=== PATIENT | female | born 1975 | race Caucasian/White ===

== ENCOUNTER → 2020-09-12 14:17 | Outpatient (CLI) | payer OTHER, SELFPAY ==
--- NOTE | ~2020-09-12 | MM_ITS ---
EXAMINATION: MM screening [facility] w kristan HISTORY: Screening mammogram TECHNIQUE: Craniocaudal and mediolateral oblique 3-D tomosynthesis images were obtained and synthetic 2-D images were generated. CAD analysis was submitted and interpreted. COMPARISON: 03/08/2018 BREAST PARENCHYMAL COMPOSITION: The breasts are heterogeneously dense, which may obscure small masses . FINDINGS: There is no evidence of suspicious mass, calcification, or architectural distortion to sugg est malignancy in either breast. There has been no suspicious interval change. IMPRESSION: 1. No mammographic evidence of malignancy. 2. Recommend routine screening mammography in one year. BI-RADS Category 1: Negative Reviewed, dictated and finalized at location A.
== END ==
PROVIDERS: Visit Provider Nurse Practitioner Obstetrics & Gynecology
DX: Z12.31 Encounter for screening mammogram for malignant neoplasm of breast (principal)
CPT/HCPCS: 77063; 77067

== ENCOUNTER → 2022-01-18 15:53 | Outpatient (CLI) | payer OTHER, SELFPAY ==
--- NOTE | ~2022-01-18 | MM_ITS ---
EXAMINATION: MM screening [facility] BI w kristan HISTORY: Screening mammogram TECHNIQUE: Craniocaudal and mediolateral oblique 3-D tomosynthesis images were obtained and synthetic 2-D images were generated. CAD analysis was submitted and interpreted. COMPARISON: 09/12/2020, 03/08/2018 BREAST PARENCHYMAL COMPOSITION: The breasts are heterogeneously dense, which may obscure small masses . FINDINGS: No suspicious mass, calcification, or architectural distortion are identified in either rimma ast to suggest malignancy. There has been no suspicious interval change. IMPRESSION: 1. No mammographic evidence of malignancy. 2. Recommend routine screening mammography in one year. BI-RADS Category 1: Negative Reviewed, dictated and finalized at location A.
== END ==
PROVIDERS: PCP Family Medicine; Visit Provider Nurse Practitioner Obstetrics & Gynecology
DX: Z12.31 Encounter for screening mammogram for malignant neoplasm of breast (principal)
CPT/HCPCS: 77063; 77067

== ENCOUNTER 2022-03-17 15:30 | Outpatient (CLI) | payer OTHER, SELFPAY ==
[2022-03-17 15:52] LABS: Hematocrit 42.9 % (37.0-47.0); Hemoglobin 14.7 g/dL (12.0-15.0)
== END 2022-03-17 15:31 | disposition home or self-care (01) ==
PROVIDERS: Anesthesiology; PCP Family Medicine; Visit Provider Obstetrics & Gynecology
DX: D64.9 Anemia, unspecified (principal); Z87.42 Personal history of other diseases of the female genital tract; Z01.818 Encounter for other preprocedural examination
CPT/HCPCS: 36415; 85014; 85018; 86850; 86900; 86901

== ENCOUNTER 2022-03-24 00:44 | Day surgery (SDC) | payer OTHER, SELFPAY ==
[2022-03-09 12:58] VITALS: BMI 23.8
--- NOTE | 2022-03-09 14:02 | PC.NURSE ---
Report to the Outpatient Waiting Room, entrance under the green pavilion located off [facility], at time _0630__ on date 03/24/22_ . Planned Procedure Time: _0830 . Time changes happen often and if your time is changed the preop area will call you the afternoon before. - You and your visitor will be asked to self-screen and do not enter if you have any COVID symptoms. - Only one visitor is requested with a max of two and NO children visitors are allowed at this time. - The patient visitor may be requested to leave or wait in car when not with patient due to distancing restrictions. - A mask is REQUIRED within the hospital. Patients may have clear liquids (water, carbonated beverages, clear teas, apple juice) until 3 hours prior to surgery with a maximum of 20 ounces. - No food from midnight until time of surgery - Take the following medications with a SIP of water the morning of surgery: _N/A Medications to discontinue per physician ____VITAMIN D & IRON Date to take last dose__03/21/22 Please no make-up, nail georgian, hairspray, perfume, deodorant, or body powder the day of surgery. No jewelry (including any body piercings) or valuables the day of surgery, leave them at home. Please take a shower or bath the night before, or the morning of, surgery with an antibacterial soap. Wear comfortable, loose fitting clothing. Children are encouraged to wear pajamas. - Jewelry must be removed prior to entering the operating room. Rings and piercings that are not removed may be cut off. - The hospital will not accept responsibility for valuables. - Please leave all valuables, including medications, at home the day of surgery. If you are going home after surgery, a licensed local company intermodal truck driver must drive you home. - NO public transportation without another adult if you receive anesthesia. - We recommend that an adult stay with you for 24 hours following discharge. - We also recommend that you do not drive, make important decision, drink alcoholic beverages, or take any drugs that were not prescribed by your health care provider for at least 24 hours after your discharge time. Follow any additional instructions given to you from your surgeon. If you or anyone in your household have experienced Covid symptoms in the past week, please notify your surgeon or the nurse liaison at the phone number below for possible testing. Telephone instructions given to _ALICIA and asked if any additional questions and then verbalized understanding. Patient advised to call surgeon office or pre surgery nurse liaison [phone] if any additional questions.
--- NOTE | 2022-03-23 13:19 | P.PNAN_ITS ---
Anes - Initial Pre Proc Eval Procedure: Operation Date: 03/24/22 08:30 Proposed Procedures p Total Laparoscopic Hysterectomy, Bilateral Salpingectomy - Gordon Maldonado MD Date/Time: 03/23/22 13:19 Surgeon: Gordon Maldonado MD Pre Op Diagnosis: menorrhagia Patient Data Age: 47 Gender: F Height: 1.65 m Weight: 65 kg Allergies Allergy/AdvReac Type Severity Reaction Status Date / Time No Known Allergies Allergy Unverified 03/24/22 06:40 Home Medications Medication Instructions Recorded Confirmed Type ergocalciferol (vitamin D2) 50 mcg 50 mcg PO DAILY 03/09/22 03/24/22 History (2,000 unit) capsule ferrous sulfate 143 mg PO DAILY 03/09/22 03/24/22 History Patient hx anesthesia problems: post op nausea/vomiting Family hx anesthesia problems: none Results Review: All pre-operative results and documents have been reviewed as part of the pre- operative evaluation. [facility] Social History Social History Smoking status: Never smoker Alcohol intake: current Substance use: never Living arrangements: with family Spiritual care concerns: No Anes - Eval Final PreProcedure Day of Procedure 03/23/22 13:19 Patient weight: normal Heart: regular rate and rhythm Lungs: clear to auscultation Airway: Mallampati scale class II Neurological: alert and oriented Last oral intake: >/= 8 hours ASA classification: II Emergent: no Anesthetic plan: proceed Anesthesia type and monitoring: general ETT and standard monitoring Results Review: All pre-operative results and documents have been reviewed as part of the pre- operative evaluation. Informed Consent: The patient's anesthetic plan and its attendant risks and benefits were discussed with the patient/family/POA. Questions were solicited and answers provided to the satisfaction of the patient/family/POA.
[2022-03-24] VITALS (9 sets, daily range): BP systolic 121–154; BP diastolic 68–89; PULSE 61–88; RESP 13–19; TEMP 36.2–37.5; O2SAT 96–100
[2022-03-24] MEDS: ACETAMINOPHEN 500 MG TABLET 1000 MG PO (06:43)
[2022-03-24] MEDS: LACTATED RINGERS 1,000 ML 30 ML IV CONT ×2 (07:08→10:47)
[2022-03-24] MEDS: SCOPOLAMINE 1.5 MG PATCH TRANSDERM (07:09)
[2022-03-24] MEDS: KETOROLAC 15 MG/ML VIAL (*BKC) IV PUSH (07:11)
--- NOTE | 2022-03-24 08:01 | WPDHPUPDATE1 ---
History and Physical Update Update Date/Time: 03/24/22 08:01 History and Physical has been reviewed, including an updated exam of the patient. There are NO changes in the patient's condition. Risks, benefits, and alternatives have been discussed and questions answered. Patient agrees to proceed with procedure.
[2022-03-24] MEDS: ceFAZolin 2 GM/D5W 50 ML 2 GM/50 ML BAG IVPB (08:23)
[2022-03-24] MEDS: ceFAZolin SODIUM 1 GM VIAL (09:16)
--- NOTE | 2022-03-24 11:12 | W.PM.PROC2 ---
Procedure Note - Detailed Date of Procedure 03/24/22 Pre-op Diagnosis menorrhagia Post-op Diagnosis Same Procedure Performed Laparoscopic bilateral salpingectomy Surgeon Gordon Maldonado MD Anesthesia General Indications Unwanted fertility Findings Normal pelvic anatomy Description of Procedure The patient was taken the operating room. She was prepped and draped in the dorsal lithotomy position after induction of general anesthesia. A 5 mm skin incision was made in the left upper quadrant of the abdominal skin. A 5 mm trocar was inserted the intra-abdominal cavity under direct visualization of the scope. Pneumoperitoneum was achieved. A 5 mm trocar was inserted in the left lower quadrant identical fashion. A 5 mm infraumbilical trocar was inserted in identical fashion as well. The bilateral fallopian tubes were removed. This was done by using a LigaSure cautery. The mesosalpinx adjacent to the tube was cauterized transected with LigaSure. This was initiated in the area the ovary and in a stepwise fashion moved medially to the area of the cornu of the uterus. Once there the fallopian tube was cauterized and transected. This was done in identical fashion on each side. The fallopian tubes were taken out through the left lower quadrant trocar site. The pneumoperitoneum was reduced. The trocars removed. The skin was closed with subcuticular 4 Monocryl and covered with Dermabond. She was taken to cover stable condition. Sponge lap and needle counts were correct x2. Estimated Blood Loss -100.0 Urine Output -100.0 Drains No Packing No Pathology Yes Complications No immediate complications Condition Stable Disposition PACU
[2022-03-24] MEDS: fentaNYL CITRATE INJ (*CRX) 100 MCG/2 ML VIAL 25 MCG IV PUSH ×2 (11:15→11:17)
[2022-03-24] MEDS: KETOROLAC 30 MG/ML VIAL (*BKC) IV PUSH ×2 (12:11→18:01)
[2022-03-24] MEDS: ONDANSETRON INJ 4 MG/2 ML VIAL IV PUSH (12:14)
--- NOTE | 2022-03-24 12:17 | OBPPTRN ---
1142 Patient transferred to post room #279 via bed. Support person present. Oriented to unit, room, information board, rooming in, admission packet and security measures. Patient verbalizes understanding.
[2022-03-24] MEDS: HYDROcodone/acetaminophen (*CRX) 5-325 MG TABLET 1 TAB PO ×2 (14:11→15:15)
[2022-03-24] MEDS: HYDROcodone/acetaminophen (*CRX) 10-325 MG TABLET 1 TAB PO ×2 (18:00→21:23)
[2022-03-25] MEDS: HYDROcodone/acetaminophen (*CRX) 10-325 MG TABLET 1 TAB PO (00:48)
[2022-03-25 04:40] VITALS: BP 112/66; PULSE 81; RESP 16; TEMP 36.8
[2022-03-25] MEDS: HYDROcodone/acetaminophen (*CRX) 5-325 MG TABLET 1 TAB PO ×2 (04:40→08:13)
[2022-03-25] MEDS: IBUPROFEN 600 MG TABLET PO (04:40)
[2022-03-25 07:50] VITALS: BP 108/59; PULSE 72; RESP 18; TEMP 37.7; O2SAT 100
--- NOTE | 2022-03-25 08:25 | PM.GYNPNOP ---
DIGITAL PRODUCTION OPERATOR - A/P Postoperative Procedures: Procedures Operation Date: 03/24/22 08:30 Actual Procedure Side Surgeon p Total Laparoscopic Hysterectomy, Bilateral Salpingectomy Bilateral Gordon Maldonado MD Postoperative day: 1 Postoperative status: doing well Postoperative plan: see orders Time Spent With Patient Time: Total time spent is greater than 50% in coordination of care (as documented) at patient's floor/unit and/or counseling patient: Time with patient: less than 15 minutes DIGITAL PRODUCTION OPERATOR- PN:Subj Post-Op Subjective Date/time seen: 03/25/22 08:25 Subjective: patient reports feeling better, patient has no complaints and pain is well controlled Exam Const: General: healthy appearing, comfortable and no acute distress Resp: Auscultation: clear to auscultation bilaterally, no rales, no rhonchi and no wheezes Cardio: Rate: regular rate Heart sounds: no click, no murmurs and no rubs GI: Inspection: non-distended Auscultation: normal bowel sounds Extrem: General: normal to inspection, no pedal edema and no calf tenderness DIGITAL PRODUCTION OPERATOR - PN: Obj Data Vital Signs Vital Signs: Vital Signs - 24 hr 03/24/22 10:47 03/24/22 11:00 03/24/22 11:15 Temperature 97.1 F L Pulse Rate 86 88 61 Respiratory Rate 19 15 14 Blood Pressure 139/86 150/79 H 143/87 H Pulse Oximetry 98 100 96 Oxygen Delivery Simple Face Mask Simple Face Mask Nasal Cannula Oxygen Flow Rate 10 10 2 03/24/22 11:30 03/24/22 11:42 03/24/22 11:55 Temperature 97.8 F Pulse Rate 65 61 Respiratory Rate 13 18 Blood Pressure 154/84 H 143/89 H Pulse Oximetry 97 99 99 Oxygen Delivery Nasal Cannula Nasal Cannula Oxygen Flow Rate 2 2 03/24/22 15:33 03/24/22 15:33 03/24/22 19:10 Temperature 97.9 F 99.5 F Pulse Rate 81 61 83 Respiratory Rate 16 18 16 Blood Pressure 151/79 H 128/68 Pulse Oximetry 99 99 Oxygen Delivery Nasal Cannula Oxygen Flow Rate 2 03/25/22 04:40 Temperature 98.3 F Pulse Rate 81 Respiratory Rate 16 Blood Pressure 112/66 Pulse Oximetry Oxygen Delivery Oxygen Flow Rate Intake/Output Intake/Output: Intake & Output 03/22/22 03/23/22 03/24/22 03/25/22 23:59 23:59 23:59 23:59 Intake Total 0 Output Total 1040 500 Balance 1030 -500 Meds/Results Medications: Active Medications Generic Name Dose Route Start Last Admin Trade Name Freq PRN Reason Stop Dose Admin Hydrocodone Bitart/Acetaminophen 1 tab 03/24/22 11:41 03/25/22 08:13 Hydrocodone/Acetaminophen (*Crx) 5-325 Mg Tablet PO 1 tab Q3H PRN Administration Pain Rated 5 or Less Hydrocodone Bitart/Acetaminophen 1 tab 03/24/22 11:41 03/25/22 00:48 Hydrocodone/Acetaminophen (*Crx) 10-325 Mg Tablet PO 1 tab Q3H PRN Administration Pain Rated 6 or Greater Ibuprofen 600 mg 03/24/22 11:41 03/25/22 04:40 Ibuprofen 600 Mg Tablet PO 600 mg Q6H PRN Administration Cramping
--- NOTE | 2022-04-01 20:55 | W.PM.PROC2 ---
Procedure Note - Detailed Date of Procedure 03/24/22 Pre-op Diagnosis menorrhagia Post-op Diagnosis Same Procedure Performed Robot assisted Total hysterectomy with bilateral salpingectomy. Surgeon Gordon Maldonado MD Anesthesia General Indications heavy vaginal bleeding, pelvic pain Findings normal-appearing uterus, ovaries, and fallopian tubes. Increased vascularity of the uterus. Markedly. Description of Procedure This patient was taken to the operating room. She was prepped and draped in the dorsal lithotomy position after induction of general anesthesia. The uterine manipulator and Sarah cup were placed. This was done with a speculum and tenaculum. The speculum was placed. The cervix was grasped with a tenaculum. The stay sutures were placed at 3 and 9:00 a.m.. The stay sutures of 0 Vicryl were tied to the appropriately Size scope after it was slipped around the cervix.. The tip of the EFRAIN manipulator was placed in the intrauterine cavity. The cup was slid into place around the cervix and into the fornices. It was locked into place. The sutures were then wrapped around the handle and tied under tension. A 8 mm skin incision was made in the left upper quadrant the abdomen. a 5 mm Visiport trocar was inserted into abdominal cavity and pneumoperitoneum was achieved. A 8 mm supraumbilical incision was made and a 8 mm trocar was inserted into the intrauterine cavity under direct visualization of the scope. an 8 mm incision was made in the right upper quadrant of the abdomen and an 8 mm robotic trocar was placed the inter uterine cavity under direct visualization the scope. An 11 mm trocar was inserted in the right upper quadrant of the abdomen rectal is a cystoscope after an incision was made there as well. The robot was docked. Electronic Orientation of the robot was performed. Bilateral ureteral lysis was performed. This was done from the pelvic brim down to the uterine artery. This was done with careful dissection using sharp and blunt dissection. The fallopian tubes were removed bilaterally. The mesosalpinx around the fallopian tubes were cauterized transected with LigaSure cautery. This was done in a bilateral fashion from the ovary to the uterine cornua. The fallopian tube was transected at the uterine cornu and amputated. The tube was taken out the left lower quadrant trocar site. In a stepwise fashion along the lateral aspects of the uterus the round ligament and broad ligaments were cauterized transected down to the level of the uterine arteries. A bladder flap was created in the bladder was moved distally to the end of the cervix and over the Sarah cup. The bilateral uterine arteries were cauterized and transected. Colpotomy was then performed. In a circumferential fashion the vagina was transected using unipolar cautery. The incision was made down on the Sarah cup. The uterus and cervix were taken out through the vagina. A pneumo occluder was placed in the vagina. The vaginal cuff was closed with a 0 V lock suture in a running fashion. The pelvis was irrigated with copious amounts antibiotic irrigation. The ureters were again examined and found to be intact and flowing freely under the uterine arteries into the bladder. The bladder was intact. It was examined directly. The vagina was irrigated with Betadine solution after removal of the Pneumo occluder. the trocars were removed after the robot was undocked. The skin was closed with subacute or Dermabond. The patient was taken to recovery room. She was stable condition. Sponge lap and needle counts were correct x2. Estimated Blood Loss -100.0 Urine Output 500 Drains Yes Packing No Pathology Yes Complications No immediate complications Condition Stable Disposition Floor
== END 2022-03-25 09:45 | disposition home or self-care (01) ==
LOC: ANHSURGERY 06:32 → ANHOB2 18:43
PROVIDERS: PCP Family Medicine; Visit Provider Obstetrics & Gynecology
PROC: 0UT9FZZ Resection of Uterus, Via Natural or Artificial Opening With Percutaneous Endoscopic Assistance (ICD-10-PCS; CPT 58573; principal; 2022-03-24 08:30)
DX: N92.0 Excessive and frequent menstruation with regular cycle (principal); D25.0 Submucous leiomyoma of uterus; N80.00 Endometriosis of the uterus, unspecified; N83.8 Other noninflammatory disorders of ovary, fallopian tube and broad ligament; N87.9 Dysplasia of cervix uteri, unspecified; R10.2 Pelvic and perineal pain
CPT/HCPCS: 58573; S2900; 36415; 85014; 85018; 86850; 86900; 86901; 88307; 99199; A9270; J0690; J1100; J1885; J2250; J2405; J2704; J2710; J3010; J7120

== ENCOUNTER 2024-06-20 15:12 | Outpatient (CLI) | payer OTHER, SELFPAY ==
--- NOTE | ~2024-06-20 | MM_ITS ---
EXAMINATION: MM screening [facility] w kristan HISTORY: Screening TECHNIQUE: Craniocaudal and mediolateral oblique 3-D tomosynthesis images were obtained and synthetic 2-D images were generated. CAD analysis was submitted and interpreted. COMPARISON: 04/11/2023 and dating back to 03/08/2018 BREAST PARENCHYMAL COMPOSITION: The breasts are extremely dense, which lowers the sensitivity of mamm ography. FINDINGS: Punctate calcifications are detected diffusely within the bilateral breast tissue, stable a nd benign in appearance. Stable parenchymal pattern without suspicious microcalcifications, architectural distortion, discrete masses or significant asymmetry. IMPRESSION: 1. No mammographic evidence of malignancy. 2. Recommend routine screening mammography in one year. BI-RADS Category 2: Benign finding(s). Reviewed, dictated and finalized at location A.
== END 2024-06-20 15:13 | disposition home or self-care (01) ==
LOC: MICIMG 15:13
PROVIDERS: PCP Obstetrics & Gynecology; Visit Provider Obstetrics & Gynecology
DX: Z12.31 Encounter for screening mammogram for malignant neoplasm of breast (principal)
CPT/HCPCS: 77063; 77067

== ENCOUNTER 2025-02-20 07:53 | Outpatient (CLI) | payer OTHER, SELFPAY ==
--- NOTE | ~2025-02-20 | MR_ITS ---
EXAMINATION: MRI left elbow without contrast: DATE: 02/20/2025 INDICATION: Left elbow pain. History of fall in July. TECHNIQUE: Axial, coronal and sagittal images were obtained without contrast. COMPARISON: None available FINDINGS: Evidence of fracture involving the coronoid process of the proximal ulna is noted without displacement. Small area of bone marrow edema is noted in this region. Mild degenerative changes of the articular cartilage thinning the humerus and ulna in this compartment. 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 Fluid distending the elbow joint space is noted. Small osteochondral debris are noted in the fluid. Radial and ulnar collateral ligaments are intact. Biceps and brachialis tendons are intact in the elbow. Triceps tendon is intact. IMPRESSION: 1. Evidence of subacute fracture involving the coronoid process of proximal anterior ulna at the elbow is noted small area of bone marrow edema surrounding this region. Mild to significant degenerative changes of the articulation is noted. 2. Fluid in the elbow joint with small osteochondral debris in the fluid. 3. Collateral ligaments and tendons are intact. Reviewed, dictated and finalized at location T. HER HAND IMPRESSION: 1. Evidence of subacute fracture involving the coronoid process of proximal ant erior ulna at the elbow is noted small area of bone marrow edema surrounding th is region. Mild to significant degenerative changes of the articulation is note d. 2. Fluid in the elbow joint with small osteochondral debris in the fluid. 3. Collateral ligaments and tendons are intact.
== END 2025-02-20 07:54 | disposition home or self-care (01) ==
PROVIDERS: PCP Orthopaedic Surgery; Visit Provider Orthopaedic Surgery
DX: M25.522 Pain in left elbow (principal)
CPT/HCPCS: 73221